=== PATIENT | female | born 1995 | race Caucasian/White ===

== ENCOUNTER 2019-05-06 04:52 | Inpatient (IN) ==
[~2019-05-06 04:52] MED LIST: CeFAZolin Premix DUPLEX 2,000 MG/50 ML BAG IVPB ONE; Famotidine 20 MG/2 ML VIAL IVP ONE; Metoclopramide 10 MG/2 ML VIAL IVP ONE; Oxytocin 20 units/ LR 1000 mL 20 UNIT/1,000 ML BAG IVC ONE; Ringers Solution, Lactated 1,000 ML IVC ONE; Ringers Solution, Lactated 1,000 ML ONE
[2019-05-06] MEDS ORDERED: Ringers Solution, Lactated 1,000 ML ONE (04:59)
[2019-05-06] MEDS ORDERED: *HR* Phenylephrine 10 MG/ML VIAL ONE (04:59)
[2019-05-06] MEDS ORDERED: *HR* FentaNYL (PF) 100 MCG/2 ML VIAL ONE (04:59)
[2019-05-06] MEDS ORDERED: *HR* Morphine Sulfate/PF 10 MG/10 ML AMPUL ONE (04:59)
[2019-05-06] MEDS ORDERED: *HR* Oxytocin 10 UNIT/ML VIAL IM ONE ×2 (04:59→06:15)
[2019-05-06] MEDS ORDERED: Azithromycin 500 MG in 0.9 % Sodium Chloride 250 ML IVPB STA (05:00)
[2019-05-06 05:11] LABS: Basophils % 0.2 %; Eosinophils # 0.1 K/mcL (0.0-0.6); Eosinophils % 0.6 %; Hematocrit 37.1 % (35.3-44.9); Hemoglobin 12.5 g/dL (11.5-15.4); Immature Granulocytes % 0.5 % (0-4); Lymphocytes # 2.7 K/mcL (0.6-4.6); Lymphocytes % 19.4 %; Mean Corpuscular HGB Conc 33.7 g/dL (31.6-35.5); Mean Corpuscular Hemoglobin 29.8 pg (28.0-33.3); Mean Corpuscular Volume 88.3 fL (83.0-100.0); Mean Platelet Volume 10.3 fL (9.4-12.4); Monocytes # 0.7 K/mcL (0.0-1.3); Neutrophils # 10.3 K/mcL (1.6-8.9); Platelet Count 263 K/mcL (140-400); Red Cell Distribution Width 12.4 % (11.5-14.5); Segmented Neutrophils % 74.3 %; White Blood Count 13.9 K/mcL (4.3-11.1)
[2019-05-06] MEDS ORDERED: *HR* Meperidine 25 MG/ML SYRINGE IVP PRN (05:59)
[2019-05-06] MEDS ORDERED: Ondansetron 4 MG/2 ML VIAL IVP PRN ×2 (05:59→08:57)
[2019-05-06] MEDS ORDERED: Acetaminophen IV 1,000 MG/100 ML INFUS..BTL IVPB ONE (05:59)
[2019-05-06] MEDS ORDERED: Naloxone 0.4 MG/ML INJ IVP PRN ×2 (05:59→08:57)
[2019-05-06] MEDS ORDERED: Sennosides 8.6 MG TABLET PO PRN (08:57)
[2019-05-06] MEDS ORDERED: *HR* OxyCODONE/APAP 5/325 TABLET PO PRN (08:57)
[2019-05-06] MEDS ORDERED: Oxytocin 20 units/ LR 1000 mL 20 UNIT/1,000 ML BAG IVC SCH ×2 (08:57)
[2019-05-06] MEDS ORDERED: Metoclopramide 10 MG/2 ML VIAL IVP PRN (08:57)
[2019-05-06] MEDS ORDERED: *HR* OxyCODONE Immed Rel 5 MG TABLET PO PRN (08:57)
[2019-05-06] MEDS ORDERED: Simethicone 80 MG TAB.CHEW PO PRN (08:57)
[2019-05-06] MEDS: cephALEXin 500 MG CAPSULE PO SCH ×3 (10:22→20:47)
[2019-05-06] MEDS: metroNIDAZOLE 500 MG TABLET PO SCH ×3 (10:23→20:47)
[2019-05-06] MEDS: Prenatal Vit/FA 1 EACH TABLET PO SCH (10:23)
[2019-05-06] MEDS: Ibuprofen 600 MG TABLET PO PRN (15:52)
[2019-05-06] MEDS ORDERED: *HR* LORazepam 1 MG TABLET PO ONE (19:33)
[2019-05-07] MEDS: Acetaminophen 325 MG TABLET PO PRN ×2 (00:53→09:44)
[2019-05-07] MEDS: Ibuprofen 600 MG TABLET PO PRN (06:21)
[2019-05-07 07:33] VITALS: BP 116/69
[2019-05-07] MEDS: Prenatal Vit/FA 1 EACH TABLET PO SCH (07:39)
[2019-05-07] MEDS: metroNIDAZOLE 500 MG TABLET PO SCH (08:38)
[2019-05-07] MEDS: cephALEXin 500 MG CAPSULE PO SCH (08:39)
[2019-05-07 08:43] LABS: Basophils % 0.3 %; Eosinophils # 0.1 K/mcL (0.0-0.6); Eosinophils % 0.4 %; Hematocrit 27.8 % (35.3-44.9); Immature Granulocytes % 0.5 % (0-4); Lymphocytes # 1.7 K/mcL (0.6-4.6); Lymphocytes % 15.3 %; Mean Corpuscular HGB Conc 34.9 g/dL (31.6-35.5); Mean Corpuscular Volume 86.1 fL (83.0-100.0); Mean Platelet Volume 9.7 fL (9.4-12.4); Monocytes # 0.7 K/mcL (0.0-1.3); Monocytes % 6.4 %; Neutrophils # 8.7 K/mcL (1.6-8.9); Platelet Count 212 K/mcL (140-400); Red Blood Count 3.23 M/mcL (3.82-4.97); Red Cell Distribution Width 12.5 % (11.5-14.5); Segmented Neutrophils % 77.1 %; White Blood Count 11.3 K/mcL (4.3-11.1)
[2019-05-07 08:44] LABS: Hemoglobin 9.7 g/dL (11.5-15.4)
== END 2019-05-07 10:30 | disposition home or self-care (01) | DRG 540 ==
LOC: 1NENULAB → 1NENUOBS 08:44
PROVIDERS: ADMIT Registered Nurse; ATTEND Registered Nurse